=== PATIENT | female | born 1965 | race Native Hawaiian/Other Pacific Islander ===

== ENCOUNTER 2017-10-30 10:08 | Outpatient (CLI) | payer OTHER ==
[~2017-10-30 10:08] MED LIST: ZESTRIL40 MG OR
== END 2017-10-30 18:18 | disposition home or self-care (01) ==
LOC: RESP 10:08
DX: R06.02 Shortness of breath (principal)
CPT/HCPCS: 94640; 94664

== ENCOUNTER 2018-04-11 12:05 | Emergency (ER) | payer OTHER ==
[~2018-04-11] VITALS: Ht 154.9 cm; Wt 81.6 kg
[2018-04-11 12:58] LABS: PLATELET COUNT 289 K/uL (152-353)
[2018-04-11 13:15] LABS: POTASSIUM 4.5 mmol/L (3.6-5.2); SODIUM 136 mmol/L (136-145)
[2018-04-11 14:15] VITALS: BP 144/87; TEMP 97.7
== END 2018-04-11 14:15 | disposition home or self-care (01) ==
LOC: ED 12:05
DX: I10 Essential (primary) hypertension (principal)
CPT/HCPCS: 36415; 80053; 81000; 82550; 82553; 84484; 85027; 93005; 99283

== ENCOUNTER 2019-04-21 11:06 | Outpatient (CLI) | payer OTHER | END 2019-04-21 19:15 | disposition home or self-care (01) | LOC: CT 11:06 | DX: R22.1 Localized swelling, mass and lump, neck (principal) | CPT/HCPCS: 36415; 82565; 84520; Q9963 ==